=== PATIENT | male | born 1970 | race Caucasian/White ===

== ENCOUNTER 2019-07-14 02:05 | Emergency (ER) | payer SELFPAY ==
[2019-07-14] MEDS ORDERED: Ketorolac Tromethamine 60 MG/2 ML VIAL ONE (02:30)
[2019-07-14] MEDS ORDERED: Cyclobenzaprine 10 MG TAB ONE (02:30)
[2019-07-14] MEDS ORDERED: Acetaminophen/Codeine 30-300mg Tablet ONE (02:30)
== END 2019-07-14 02:35 | disposition home or self-care (01) ==
LOC: BURERS 02:05
DX: M62.830 Muscle spasm of back (principal); Z87.891 Personal history of nicotine dependence
CPT/HCPCS: 96372; 99283; J1885

== ENCOUNTER 2021-09-22 15:51 | Emergency (ER) | payer SELFPAY ==
[2021-09-22] MEDS ORDERED: AMOXicillin 250 MG CAP ONE (16:20)
[2021-09-22] MEDS ORDERED: HYDROcodone/Acetaminophen 10/325 mg Tablet ONE (16:20)
== END 2021-09-22 16:30 ==
LOC: BURERS 15:51
DX: K08.89 Other specified disorders of teeth and supporting structures (principal); F17.210 Nicotine dependence, cigarettes, uncomplicated
CPT/HCPCS: 99283